=== PATIENT | male | born 1965 | race Caucasian/White ===

== ENCOUNTER 2018-07-21 20:50 | Observation (INO) | payer OTHER ==
[~2018-07-21] VITALS: Ht 190.5 cm; Wt 143.6 kg
[~2018-07-21 20:50] MED LIST: 24HOUR ALLERGY10 MG PO; ACET325 PO; ALBU90OI INH; AMOCLA875 PO; AMOX875 PO; ATEN25; Adderall 20 MG20 MG PO; BENAML10/5; BUDE10.22 INH; CIPR500 PO; CLON2; CRUTCH3 XX; DULO60; DULO60 PO; ENOX120I; FURO20; GABA300 PO; HYDACE10B; HYDACE5 PO; HYDHCL25 PO; HYDMOR4; HYDR1TAB94 PO; IBUHYD PO; LEVSOD50; METO50ER PO; MORP30 PO; MORPHINE; NAPR500 PO; OMEP20ER; Omeprazole20 M1 PO; POTA10T; PRED20 PO; Percocet 5-3251 EACH PO; RIZA10MLT; RXNEOPOLHC OT; SYNTHROID25 MCG PO; TIROSINT50 MCG PO; TRAZ100 PO; WARF10; WARF7.5; XARELTO20 MG PO; ZOLP12.5
[2018-07-24] MEDS ORDERED: Calcitonin-Sal3.7 ML (12:25)
[2018-07-24] MEDS ORDERED: OXYC1TAB11 PO (12:26)
[2018-07-24] MEDS ORDERED: Zanaflex4 MG PO (12:26)
[2018-07-24] MEDS ORDERED: GAVILAX17 GM PO (12:27)
== END 2018-07-24 17:16 | disposition home or self-care (01) ==
LOC: ER 20:50 → MEDS 20:51 → ENPENDDIS 07-24 12:17 → MEDS 07-24 17:16
DX: S32.021A Stable burst fracture of second lumbar vertebra, initial encounter for closed fracture (principal); F43.10 Post-traumatic stress disorder, unspecified; F41.9 Anxiety disorder, unspecified; F32.9 Major depressive disorder, single episode, unspecified; G89.4 Chronic pain syndrome; F90.9 Attention-deficit hyperactivity disorder, unspecified type; K21.9 Gastro-esophageal reflux disease without esophagitis; J45.909 Unspecified asthma, uncomplicated; E78.5 Hyperlipidemia, unspecified; E66.9 Obesity, unspecified; E03.9 Hypothyroidism, unspecified; Z88.8 Allergy status to other drugs, medicaments and biological substances; Z86.718 Personal history of other venous thrombosis and embolism; Z79.899 Other long term (current) drug therapy; V63.5XXA Driver of heavy transport vehicle injured in collision with car, pick-up truck or van in traffic accident, initial encounter
CPT/HCPCS: 72100; 72131; 94667; 94760; 96372; 96374; 96375; 96376; 97110; 97116; 97162; 97167; 97530; 97535; 99285-25; G8978; G8979; G8987; G8988; J0630; J1170; J1885; J2405

== ENCOUNTER 2020-08-16 12:49 | Observation (INO) | payer OTHER ==
[~2020-08-16] VITALS: Ht 190.5 cm; Wt 137.4 kg
[~2020-08-16 12:49] MED LIST changes: +Calcitonin-Sal3.7 ML; +GAVILAX17 GM PO; +OXYC1TAB11 PO; +Zanaflex4 MG PO
[2020-08-16 13:10] LABS: BASOPHILS ABSOLUTE AUTO 0.03 K/mm3 (0.00-0.23); BASOPHILS PERCENT AUTO 0 % (0-2); EOSINOPHILS ABSOLUTE AUTO 0.05 K/mm3 (0.00-0.68); EOSINOPHILS PERCENT AUTO 1 % (0-6); Hematocrit 48.9 % (37.0-53.0); Hemoglobin 16.3 g/dL (13.5-17.5); IMMATURE GRAN ABSOLUTE AUTO 0.02 K/mm3 (0.00-0.10); IMMATURE GRAN PERCENT AUTO 0 % (0-1); LYMPHOCYTES ABSOLUTE AUTO 1.58 K/mm3 (0.84-5.20); LYMPHOCYTES PERCENT AUTO 20 % (21-46); MONOCYTES PERCENT AUTO 6 % (4-13); Mean Corpuscular HGB 28.1 pg (26.0-34.0); Mean Corpuscular HGB Conc 33.3 g/dL (31.5-36.5); Mean Corpuscular Volume 84 fL (80-100); NEUTROPHILS ABSOLUTE AUTO 5.73 K/mm3 (1.96-9.15); NEUTROPHILS PERCENT AUTO 72 % (41-73); Platelet Count 251 K/mm3 (150-400); RDW Coefficient Variation 13.7 % (11.7-14.2); RDW Standard Deviation 42.3 fL (35.1-46.3); White Blood Cell Count 7.91 K/mm3 (4.00-11.30)
[2020-08-16 13:38] LABS: Alanine Aminotransfer (ALT/SGP 36 U/L (12-78); Albumin, Blood 3.6 g/dL (3.4-5.0); Albumin/Globulin Ratio 0.9 (0.8-1.8); Alk Phos 90 U/L (50-136); Anion Gap 3 mmol/L (6-16); Aspartate Aminotrans (AST/SGOT 28 U/L (12-37); Bilirubin, Total 0.7 mg/dL (0.1-1.0); Blood Urea Nitrogen 13 mg/dL (8-24); Bun/Creatinine Ratio 15.4 (12.0-20.0); CO2, Blood 27 mmol/L (21-32); Calcium, Blood 8.8 mg/dL (8.5-10.1); Chloride, Blood 108 mmol/L (98-108); Creatinine, Blood 0.85 mg/dL (0.60-1.20); Globulin, Blood 4.2 g/dL (2.2-4.0); Glomerular Filtration Rate >60 (60-); Glucose, Blood 180 mg/dL (70-99); Potassium, Blood 4.3 mmol/L (3.5-5.5); Sodium, Blood 138 mmol/L (136-145); Total Protein, Blood 7.8 g/dL (6.4-8.2); Troponin I <0.015 ng/mL (0.000-0.040)
[2020-08-16 14:46] LABS: International Normalized Ratio 1.12; Prothrombin Time Results 11.9 Sec (9.7-11.5)
[2020-08-16] MEDS ORDERED: VITAMIN D31000 UNI1 PO (15:44)
[2020-08-16] MEDS ORDERED: Adderall 20 MG20 MG PO (15:44)
[2020-08-16] MEDS ORDERED: DULO60 PO (15:45)
[2020-08-16] MEDS ORDERED: METO50ER PO (15:45)
[2020-08-16] MEDS ORDERED: HYDHCL25 PO (15:45)
[2020-08-16] MEDS ORDERED: MORP30ER PO (15:45)
[2020-08-16] MEDS ORDERED: XARELTO20 MG PO (15:46)
[2020-08-16] MEDS ORDERED: OMEP20ER PO (15:46)
[2020-08-16] MEDS ORDERED: LORA10ER PO (15:46)
[2020-08-16 16:31] LABS: Influenza A, PCR Negative (NEGATIVE); Influenza B, PCR Negative (NEGATIVE); Resp Syncytial Virus, PCR Negative (NEGATIVE); SARS-Cov-2 (COVID-19) PCR, MMC Negative (NEGATIVE)
--- NOTE | 2020-08-16 17:55 | NUR ---
PT ARRIVED TO ROOM 309 FROM ER VIA W/C. ABLE TO STAND AND TRANSFER TO BED. ORIENTED TO ROOM AND CALL SYSTEM. DENIES PAIN AT THIS TIME. CALL ZENDEJAS IN REACH, WILL MONITOR.
[2020-08-16 17:59] LABS: Source, Urine Voided
[2020-08-16 18:03] LABS: Appearance, Urine Clear (Clear); Bilirubin, Urine Neg (Neg); Blood, Urine Neg (Neg); Color, Urine Amber (P-Yellow); Glucose Qualitative, Urine Neg (Neg); Ketones, Urine Neg (Neg); Leukocyte Esterase, Urine 1+ (Neg); Nitrite, Urine Neg (Neg); Protein, Urine 2+ (Neg); Specific Gravity, Urine 1.015 (1.003-1.022); Urobilinogen, Urine 2+ (Normal)
[2020-08-16 18:09] LABS: Thyroid Stimulating Hormone 2.32 uIU/mL (0.360-4.800)
[2020-08-16 18:10] LABS: Free Thyroxine 0.98 ng/dL (0.70-1.60)
[2020-08-16 18:18] LABS: Bacteria Few /hpf; Mucus Light (0-Heavy); Red Blood Cells, Urine Not Seen /hpf (0-2); Squamous Epithelial Cells Rare /hpf (Few); White Blood Cells, Urine 0-2 /hpf (0-5)
--- NOTE | 2020-08-16 18:38 | NUR ---
PT WITH BP OF 171/111 AND HR OF 118 ON ARRIVAL. T/C TO DR Cher STEPHENSON, ORDERS TO START METOPROLOL XL 50 MG NOW.
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
[2020-08-17 04:55] LABS: BASOPHILS ABSOLUTE AUTO 0.03 K/mm3 (0.00-0.23); BASOPHILS PERCENT AUTO 0 % (0-2); EOSINOPHILS ABSOLUTE AUTO 0.16 K/mm3 (0.00-0.68); EOSINOPHILS PERCENT AUTO 2 % (0-6); Hematocrit 41.2 % (37.0-53.0); Hemoglobin 13.7 g/dL (13.5-17.5); IMMATURE GRAN ABSOLUTE AUTO 0.02 K/mm3 (0.00-0.10); IMMATURE GRAN PERCENT AUTO 0 % (0-1); LYMPHOCYTES ABSOLUTE AUTO 3.65 K/mm3 (0.84-5.20); LYMPHOCYTES PERCENT AUTO 44 % (21-46); MONOCYTES ABSOLUTE AUTO 0.66 K/mm3 (0.16-1.47); MONOCYTES PERCENT AUTO 8 % (4-13); Mean Corpuscular HGB Conc 33.3 g/dL (31.5-36.5); Mean Corpuscular Volume 84 fL (80-100); NEUTROPHILS ABSOLUTE AUTO 3.72 K/mm3 (1.96-9.15); NEUTROPHILS PERCENT AUTO 45 % (41-73); Platelet Count 202 K/mm3 (150-400); RDW Coefficient Variation 13.7 % (11.7-14.2); RDW Standard Deviation 42.2 fL (35.1-46.3); Red Blood Cell Count 4.89 M/mm3 (4.30-5.90); White Blood Cell Count 8.24 K/mm3 (4.00-11.30)
[2020-08-17 05:14] LABS: Anion Gap 7 mmol/L (6-16); Blood Urea Nitrogen 11 mg/dL (8-24); Bun/Creatinine Ratio 15.9 (12.0-20.0); CHOL/HDL RATIO 3.1; CO2, Blood 23 mmol/L (21-32); Calcium, Blood 8.3 mg/dL (8.5-10.1); Chloride, Blood 111 mmol/L (98-108); Cholesterol 141 mg/dL (50-200); Creatinine, Blood 0.69 mg/dL (0.60-1.20); Glomerular Filtration Rate >60 (60-); Glucose, Blood 117 mg/dL (70-99); HDL Cholesterol 45 mg/dL (>39); LDL/HDL RATIO 1.6; Low Density Lipoprotein Chol 72 mg/dL (0-110); Potassium, Blood 3.9 mmol/L (3.5-5.5); Sodium, Blood 141 mmol/L (136-145); Triglycerides 122 mg/dL (30-160); Very Low Density Lipoprot Chol 24 mg/dL (6-32)
--- NOTE | 2020-08-17 12:49 | NUR ---
HE HAS BEEN NPO SINCE BREAKFAST FOR AN AFTERNOON RESTING STRESS TEST. NO CP SINCE ADMISSION. HE HAS C/O SOB SINCE ADMISSION. TODAY HE WAS SOB AFTER HIS SHOWER. IV SITE REDRESSED. IT FLUSHES WELL. HE USES HIS CANE AND SBA WHEN WALKING TO AND FROM THE BATHROOM. TELE IS NSR IN THE 80'S.
--- NOTE | 2020-08-17 14:12 | NUR ---
HE JUST RECEIVED HIS INJECTION FROM NUCLEAR MEDICINE. NOW HE IS GOING TO EAT A LATE LUNCH. HE ALSO ENJOYED A LONG VISIT FROM A VOLUNTEER VET JUST BEFORE THAT. NO COMPLAINTS.
--- NOTE | 2020-08-17 15:39 | NUR ---
TODAY'S SRESS TEST DONE.
--- NOTE | 2020-08-17 18:09 | NUR ---
NO CP TODAY. RESTING PART OF STRESS TEST DONE TODAY. NO COMPLAINTS. HE RECEIVES THE MS CONTIN FOR HIS CHRONIC BACK PAIN AT HOME. VOIDING WELL. TELE NSR. NO EVENTS. SCD'S ON AND OFF. HOME O2 EVAL TO BE DONE TOMORROW. HE HAS HAD MILD SOB WHEN TO THE BATHROOM AND BACK BUT NOT EVERY TIME. WILL BE NPO AFTER BREAKFAST IN THE MORNING AGAIN FOR TOMORROW'S STRESS TEST.
--- NOTE | 2020-08-18 04:39 | NUR ---
SHIFT SUMMARY PT SLEPT WELL THIS EVENING. HAD NO COMPLAINTS OF CHEST PAIN. PT DOES REPORT SOB W/ EXERTION BECOMING WINDED WALKING TO THE RESTROOM AND BACK TO HIS BED. RECOVERS QUICKLY. TELEMETRY READING SR IN THE 80'S. MEDICATED W/ SCHEDULED MS CONTIN FOR CHRONIC BACK PAIN. NO CAFFEINE THIS EVENING TO PREPARE FOR SECOND PART OF STRESS TEST TODAY. VITAL SIGNS STABLE. PT HAD UNEVENTFUL NIGHT. WILL CONTINUE TO MONITOR AND REPORT TO DAY RN.
--- NOTE | 2020-08-18 12:25 | NUR ---
HE IS BEING SET UP FOR HIS STRESS TEST NOW. HE HAS BEEN NPO SINCE 829. NO CP. NO COMPLAINTS AND SAYS HE IS NOT SOB WALKING TO AND FROM THE BATHROOM LIKE HE WAS PREVIOUSLY.
--- NOTE | 2020-08-18 15:14 | NUR ---
AWAITING STRESS TEST RESULTS. HE IS TAKING A NAP.
--- NOTE | 2020-08-18 16:36 | NUR ---
I SPOKE WITH . STRESS TEST RESULTS ARE NEGATIVE. HE WILL BE DISCHARGED.
[2020-08-18] MEDS ORDERED: ATOR40TA PO (17:58)
[2020-08-18] MEDS ORDERED: ASPI81CH PO (17:58)
--- NOTE | 2020-08-18 18:28 | NUR ---
DISCHARGED TO HOME NOW WITH BELONGINGS AND INSTRUCTIONS. HIS STRESS TEST WAS NEGATIVE. HE UNDERSTANDS HE'LL START BABY ASA AND LIPITOR AT HOME. HE WILL F[facility]U WITH [facility]. [facility]
== END 2020-08-18 18:25 | disposition home or self-care (01) ==
LOC: ER 12:49 → MEDS 12:50
PROVIDERS: Emergency Medicine; Student in an Organized Health Care Education/Training Program; ADMIT Hospitalist
DX: R09.89 Other specified symptoms and signs involving the circulatory and respiratory systems (principal); R06.00 Dyspnea, unspecified; R55 Syncope and collapse; I10 Essential (primary) hypertension; G89.4 Chronic pain syndrome; K21.9 Gastro-esophageal reflux disease without esophagitis; E03.9 Hypothyroidism, unspecified; E78.5 Hyperlipidemia, unspecified; M19.90 Unspecified osteoarthritis, unspecified site; G47.30 Sleep apnea, unspecified; G25.81 Restless legs syndrome; Z66 Do not resuscitate; Z88.8 Allergy status to other drugs, medicaments and biological substances; Z79.01 Long term (current) use of anticoagulants; Z79.899 Other long term (current) drug therapy; Z20.822 Contact with and (suspected) exposure to COVID-19
CPT/HCPCS: 0241U; 36415; 70450; 71045; 71260; 78452; 80048; 80053; 80061; 81001; 83036; 83880; 84439; 84443; 84484; 85025; 85610; 85730; 87086; 93005; 93010; 93017; 94761; 96361; 96374; 99285-25; A9270; A9500; G0378; J0706; J2785; J3010; J7030; Q9967